=== PATIENT | female | born 1965 | race Caucasian/White ===

== ENCOUNTER → 2019-03-28 | Day surgery (SDC) | payer MEDICAID ==
[~2019-03-28] MED LIST: ESCITALOPRAM OX10 MG PO; IV RINGERS,LACTATED 1000ML 1,000 ML IV ONE; LIDOCAINE 2% PF 5 ML VIAL. ONE; PROPOFOL 60 ML IV ONE
[2019-03-28 11:30] VITALS: BP 125/66
--- NOTE | 2019-03-28 12:04 | PREOP HP ---
DATE OF SERVICE: 03/28/2019 REQUESTING PHYSICIAN: Dr. Yvette Smith. PRIMARY CARE PHYSICIAN: Dr. Yvette Smith. REASON FOR PROCEDURE: Colon polyp. REASON FOR PROCEDURE: Colon polyp. HISTORY OF PRESENT ILLNESS: This is a 53-year-old female who had a colonoscopy on 10/16/2018 and had several tubular adenomas removed. She had oxygen desaturation during the procedure and 2 polyps were unable to be removed. She returns today for removal of polyps. ALLERGIES: No known drug allergies. FAMILY MEDICAL HISTORY: No colon cancer. MEDICATION: Lexapro. REVIEW OF SYSTEMS: A 13-point review of systems was done and is positive as per HPI and otherwise negative. PHYSICAL EXAMINATION: VITAL SIGNS: She is afebrile and vital signs are stable. GENERAL: She is a well-developed, well-nourished female, in no apparent distress. HEENT: Oropharynx is clear. CARDIOVASCULAR: S1, S2. LUNGS: Clear. ABDOMEN: Normoactive bowel sounds, soft, nontender, nondistended. EXTREMITIES: No edema. NEUROLOGIC: Awake, alert and oriented x 3. SOCIAL HISTORY: She admits to tobacco and denies alcohol or IV drug abuse. ASSESSMENT AND PLAN: 1. History of colon polyps. We will proceed with a colonoscopy for removal of polyps. The risks and benefits including bleeding, perforation, non-diagnosis and sedation were explained and she has agreed to proceed. Of note, she did not smoke today. Thank you for allowing me to participate in the care of this patient. WILL LAI MD DR: DAVIN/oz JOB#: [id number] / [id number]
--- NOTE | 2019-04-01 08:06 | PATHOLOGY ---
[facility] Accession Number: [id number] . 01 Material submitted: . PART A: colon - SIGMOID POLYP. Modifiers: sigmoid PART B: rectum - RECTAL POLYP BIOPSY . 01 Clinical history: . Hx colon polyps . 02 Diagnosis: A. Colon biopsy, sigmoid polyp: - Tubular adenoma. . B. Colorectal biopsies, rectal polyp: - Hyperplastic polyp. (JPM:jere; 03/29/2019) QMS/03/29/2019 . 02 Comment: There is no high-grade dysplasia or evidence of malignancy. (JPM:jere; 03/29/2019) . 02 Electronically signed: . Andrew Pope MD, Pathologist NPI- [id number] . 01 Gross description: . A. Received in formalin labeled "Lavinia Albert, sigmoid polyp," is a 0.6 x 0.5 x 0.4 cm polypoid piece of cervantes soft tissue. The margin is inked and the tissue is sectioned perpendicular to the margin and submitted entirely in cassette A1. . B. Received in formalin labeled "Lavinia Albert, rectal polyp BX," are 2 segments of cervantes soft tissue measuring 0.7 x 0.2 x 0.2 cm in aggregate dimensions and ranging from 0.3 to 0.4 cm in maximum dimension. The specimen is submitted entirely in cassette B1. (TSD; 03/28/2019) TOB/TOB . 02 Pathologist provided ICD-10: D12.5, K62.1 . 02 CPT . 526085, 288677 Specimen Comment: A courtesy copy of this report has been sent to Specimen Comment: [phone], . Specimen Comment: Report sent to / DR PARDO Performed at: 01 [facility] [address], [place], [place] [id number] MD Abdirahman Smith MD Phone: [phone] Performed at: 02 [facility] [address], [place] [id number] MD Andrew Pope MD Phone: [phone]
== END ==
LOC: ENDOS 09:22
PROVIDERS: ATTEND Internal Medicine Gastroenterology
DX: Z12.11 Encounter for screening for malignant neoplasm of colon (principal); D12.5 Benign neoplasm of sigmoid colon; K62.1 Rectal polyp; K64.0 First degree hemorrhoids; K57.30 Diverticulosis of large intestine without perforation or abscess without bleeding; Z86.010 Personal history of colon polyps
CPT/HCPCS: 45380; 45385; 88305; J2001; J2704; 45382